=== PATIENT | male | born 1960 | race Caucasian/White ===

== ENCOUNTER → 2017-11-21 | Outpatient (CLI) | payer MEDICAID | END | disposition home or self-care (01) | LOC: CFH 15:17 | PROVIDERS: ATTEND Nurse Practitioner | DX: N50.811 Right testicular pain (principal) | CPT/HCPCS: 76870 ==

== ENCOUNTER 2019-12-12 12:23 | Outpatient (CLI) | payer MEDICAID | END 2019-12-12 23:59 | disposition home or self-care (01) | LOC: CFH 12:23 | PROVIDERS: ATTEND Nurse Practitioner | DX: M25.561 Pain in right knee (principal) ==